=== PATIENT | male | born 1990 | race African-American/Black ===

== ENCOUNTER 2018-12-12 18:56 | Emergency (ER) | payer SELFPAY ==
[~2018-12-12] VITALS: Ht 175.3 cm; Wt 95.3 kg
--- NOTE | 2018-12-12 19:20 | NUR ---
ED Nurse Note: Patient walk in c/o cough, headache, and congestion for 2x days. Denies SOB. VSS. AO4. NAD
[2018-12-12 19:25] VITALS: BP 125/85
--- NOTE | 2018-12-12 19:34 | Emergency Room Report ---
History of Present Illness General Chief Complaint: Upper Respiratory Illness Source: Patient Present Illness HPI 28-year-old male presents to the emergency department complaining of persistent dry cough in addition to some wheezing 2-3 days. Patient reports some flashes but denies fevers or chills he reports throat irritation and nasal congestion. Patient denies recent travel he states that his sister has similar symptoms. Patient denies history of smoking but states that he is exposed to moderate amount of secondhand smoke regularly. Patient reports history of bronchitis. He denies chest pain, shortness of breath or dyspnea. reports 5/10 in severity frontal sinus pressure SEWELL. Denies unilateral facial pain/tenderness. OTC medications are not working for him. Allergies: Coded Allergies: GUAIFENESIN (Verified Allergy, Unknown, 12/12/18) Patient History Past Medical History: see triage record Past Surgical History: none Pertinent Family History: none Immunizations: UTD Reviewed Nursing Documentation: PMH: Agreed; PSxH: Agreed Nursing Documentation-PMH Past Medical History: No Stated History Review of Systems All Other Systems: negative except mentioned in HPI Physical Exam Vital Signs Date Time Temp Pulse Resp B/P (MAP) Pulse Ox O2 Delivery O2 Flow Rate FiO2 12/12/18 19:14 98.4 82 16 125/85 96 Room Air Sp02 EP Interpretation: reviewed, normal General Appearance: no apparent distress, alert, GCS 15, non-toxic Head: normocephalic, atraumatic Eyes: bilateral eye normal inspection, bilateral eye PERRL ENT: hearing grossly normal, normal voice, TMs + canals normal, uvula midline, moist mucus membranes, nasal congestion, pharyngeal erythema Neck: full range of motion, no meningismus Respiratory: chest non-tender, lungs clear, normal breath sounds, no respiratory distress, no accessory muscle use, speaking full sentences, wheezing - scant expiratory wheezes at the end of expiration Cardiovascular #1: regular rate, rhythm Musculoskeletal: back normal, gait/station normal, normal range of motion, non- tender Neurologic: alert, oriented x3, responsive, motor strength/tone normal, sensory intact, speech normal, grossly normal Psychiatric: judgement/insight normal Skin: normal color, no rash, warm/dry, well hydrated Lymphatic: no adenopathy Medical Decision Making PA Attestation Dr. Holloway is my supervising Physician whom patient management has been discussed with. Diagnostic Impression: Primary Impression: Bronchitis ER Course 28-year-old male presents to the emergency department complaining of persistent dry cough in addition to some wheezing 2-3 days. Patient reports some flashes but denies fevers or chills he reports throat irritation and nasal congestion. Patient denies recent travel he states that his sister has similar symptoms. Patient denies history of smoking but states that he is exposed to moderate amount of secondhand smoke regularly. Patient reports history of bronchitis. He denies chest pain, shortness of breath or dyspnea. reports 5/10 in severity frontal sinus pressure SEWELL. Denies unilateral facial pain/tenderness. OTC medications are not working for him. Ddx considered but are not limited to URI, pneumonia, PE, strep pharyngitis, meningitis. Vital signs: Pt.is afebrile VS are WNL H&PE are most consistent with bronchitis ORDERS: none required at this time, the diagnosis is clinical ED INTERVENTIONS: None required at this time. DISCHARGE: At this time pt. is stable for d/c to home. Will provide printed patient care instructions, and any necessary prescriptions. Care plan and follow up instructions have been discussed with the patient prior to discharge. Last Vital Signs Date Time Temp Pulse Resp B/P (MAP) Pulse Ox O2 Delivery O2 Flow Rate FiO2 12/12/18 19:14 98.4 82 16 125/85 96 Room Air Disposition: HOME, SELF-CARE Condition: Stable Scripts No Active Prescriptions or Reported Meds Patient Instructions: Acute Bronchitis, [id number] Additional Instructions: Take medications as directed. Follow up with a Primary Care Provider in 3-5 days, even if your symptoms have resolved. --Please review list of primary care clinics, if you do not already have a primary care provider Return sooner to ED if new symptoms occur, or current symptoms become worse. Do not drink alcohol, drive, or operate heavy machinery while taking Cough Syrup as this may cause drowsiness. - Please note that this Emergency Department Report was dictated using [employer] layer technology software, occasionally this can lead to erroneous entry secondary to interpretation by the dictation equipment. Sharee Wallace Dec 12, 2018 19:34
[2018-12-12] MEDS ORDERED: ZYRTEC-D TABLE1 EACH ORAL (19:36)
[2018-12-12] MEDS ORDERED: PROMETHAZINE-C118 M1 ORAL (19:36)
[2018-12-12] MEDS ORDERED: ALBUTEROL SULF8.5 GM INH (19:36)
[2018-12-12 19:40] VITALS: BP 125/85
--- NOTE | 2018-12-12 19:40 | NUR ---
ED Nurse Note: Patient cleared for discharge per ERMD. AO4. NAD. VSS. Patient given prescriptions and discharge instructions; verbalized understanding. ID band removed. Patient ambulated out with all personal belongings with steady gait.
== END 2018-12-12 19:40 | disposition home or self-care (01) ==
LOC: EMR 19:35
DX: J20.9 Acute bronchitis, unspecified (principal); Z88.8 Allergy status to other drugs, medicaments and biological substances
CPT/HCPCS: 99282